=== PATIENT | male | born 1980 | race Hispanic/Latino ===

== ENCOUNTER 2018-05-05 14:04 | Emergency (ER) | payer BC, OTHER ==
[2018-05-05 14:04] VITALS: BMI 29.8
--- NOTE | 2018-05-05 14:45 | ED PDOC ---
Syncope/Near Syncope/Dizziness Time Seen by Provider: 05/05/18 14:23 Chief Complaint (Nursing): Dizziness/Lightheaded Chief Complaint (Provider): Dizziness/Lightheaded History Per: Patient History/Exam Limitations: no limitations Onset/Duration Of Symptoms: Days (x3 days) Current Symptoms Are (Timing): Still Present Possible Causative Factor(s): Lightheaded W/Change In Head Position Additional Complaint(s): 38 year old male with a past medical history of HTN, presents to the emergency department complaining of dizziness/lightheadedness, associated with nausea, onset x3 days. Patient states that symptoms are worse with moving the head from side to side. He denies any headache, chest pain, palpitations, loss of consciousness, or focal weakness. PMD: Ever Roe Past Medical History Reviewed: Historical Data, Nursing Documentation, Vital Signs Vital Signs: Last Vital Signs Temp 98.2 F 05/05/18 14:17 Pulse 88 05/05/18 14:17 Resp 16 05/05/18 14:17 BP 143/80 05/05/18 14:17 Pulse Ox 95 05/05/18 14:17 - Medical History PMH: HTN, Mitral Valve Prolapse Denies: Chronic Kidney Disease - Surgical History Surgical History: Appendectomy (2006), Tonsillectomy (1995 Dr. Roe) - Family History Family History: States: Unknown Family Hx - Immunization History Hx Tetanus Toxoid Vaccination: No Hx Pneumococcal Vaccination: No - Home Medications Home Medications: Ambulatory Orders Medication Instructions Recorded Lisinopril [Zestril] 10 mg PO DAILY 05/05/18 Meclizine [Meclizine*] 25 mg PO Q8 #15 tab 05/05/18 - Allergies Allergies/Adverse Reactions: Allergies Allergy/AdvReac Type Severity Reaction Status Date / Time moxifloxacin HCl Allergy RASH Verified 05/05/18 14:16 [From Avelox] Review of Systems ROS Statement: Except As Marked, All Systems Reviewed And Found Negative Cardiovascular: Negative for: Chest Pain, Palpitations Gastrointestinal: Positive for: Nausea Neurological: Positive for: Dizziness (lightheaded). Negative for: Weakness, Headache, Other (loss of consciousness) Physical Exam - Reviewed Nursing Documentation Reviewed: Yes Vital Signs Reviewed: Yes - Physical Exam Appears: Positive for: Non-toxic, No Acute Distress Head Exam: Positive for: ATRAUMATIC, NORMOCEPHALIC Skin: Positive for: Normal Color, Warm, Dry Eye Exam: Positive for: Normal appearance, EOMI, PERRL ENT: Positive for: Normal ENT Inspection Neck: Positive for: Normal, Painless ROM, Supple Cardiovascular/Chest: Positive for: Regular Rate, Rhythm. Negative for: Murmur Respiratory: Positive for: Normal Breath Sounds. Negative for: Respiratory Distress Gastrointestinal/Abdominal: Positive for: Normal Exam, Soft. Negative for: Tenderness Back: Positive for: Normal Inspection. Negative for: L CVA Tenderness, R CVA Tenderness, Vertebral Tenderness Extremity: Positive for: Normal ROM. Negative for: Pedal Edema, Deformity Neurologic/Psych: Positive for: Alert, Oriented. Negative for: Motor/Sensory Deficits Comments: Symptoms are reproducible when turning the head from side to side or if any change in position. - Laboratory Results Result Diagrams: 05/05/18 14:45 05/05/18 14:45 - ECG O2 Sat by Pulse Oximetry: 95 (RA) Pulse Ox Interpretation: Normal Medical Decision Making Medical Decision Makin Impression: dizziness considering vertigo Plan: Will obtain EKG and blood work to rule out other causes and will start on meclizine. --EKG --CMP --CBC with differential --Meclizine 25 mg PO Scribe Attestation: Documented by Leroy Pool, acting as a scribe for Jayson Vega MD. Provider Scribe Attestation: All medical record entries made by the Scribe were at my direction and personally dictated by me. I have reviewed the chart and agree that the record accurately reflects my personal performance of the history, physical exam, medical decision making, and the department course for this patient. I have also personally directed, reviewed, and agree with the discharge instructions and disposition. Disposition - Clinical Impression Clinical Impression: Vertigo - Patient ED Disposition Is Patient to be Admitted: No Counseled Patient/Family Regarding: Studies Performed, Diagnosis, Need For Followup, Rx Given - Disposition Referrals: [facility] [Outside] Disposition: Routine/Home Disposition Time: 15:40 Condition: FAIR Prescriptions: Meclizine [Meclizine*] 25 mg PO Q8 #15 tab Instructions: Vertigo (a Type of Dizziness) Forms: [employer] (Latvian)
[2018-05-05 15:01] LABS: BASO # 0.1 K/uL (0.0-0.2); EOS # 0.1 K/uL (0.0-0.7); EOS % 1.3 % (0.0-4.0); HEMOGLOBIN 16.1 g/dL (12.0-18.0); LYMPH # 1.5 K/uL (1.0-4.3); LYMPH % 22.6 % (20.0-40.0); MEAN CELL VOLUME 88.4 fl (80.0-94.0); MEAN CORPUSCULAR HEMOGLOBIN 29.9 pg (27.0-31.0); MEAN CORPUSCULAR HGB CONC 33.8 g/dL (33.0-37.0); MONO # 0.9 K/uL (0.0-0.8); NEUT # 4.2 K/uL (1.8-7.0); NEUT % 62.1 % (50.0-75.0); RBC 5.39 Mil/uL (4.40-5.90); WHITE BLOOD COUNT 6.7 K/uL (4.8-10.8)
[2018-05-05 15:25] LABS: ALB/GLOB RATIO 1.4 (1.0-2.1); ALBUMIN 4.2 g/dL (3.5-5.0); ALT/SGPT 47 U/L (21-72); AST/SGOT 30 U/L (17-59); BLOOD UREA NITROGEN 11 mg/dl (9-20); CALCIUM 9.1 mg/dL (8.4-10.2); GFR NON-AFRICAN AMERICAN > 60
[2018-05-05 16:08] VITALS: BP 132/74; PULSE 85; RESP 18; TEMP 98; O2SAT 97
--- NOTE | 2018-05-06 12:21 | CARD ---
APPROVED REPORT Date of service: 05/05/2018 EKG Measurement Heart [id number] MD [id number] <Conclusion> Normal sinus rhythm Possible Left atrial enlargement Borderline ECG
== END 2018-05-05 16:00 | disposition home or self-care (01) ==
LOC: H.ER 14:04
DX: R42 Dizziness and giddiness (principal); I10 Essential (primary) hypertension; I34.1 Nonrheumatic mitral (valve) prolapse; Z79.899 Other long term (current) drug therapy